=== PATIENT | female | born 1955 | race Caucasian/White ===

== ENCOUNTER 2016-12-07 13:37 | Emergency (ER) | payer BC, OTHER ==
[~2016-12-07] VITALS: Ht 165.1 cm; Wt 65.0 kg
[~2016-12-07 13:37] MED LIST: GUAI100S6 PO; ZITH250T PO
[2016-12-07 13:40] VITALS: BP 159/98; PULSE 104; RESP 16; TEMP 97.9; O2SAT 97
--- NOTE | 2016-12-07 15:05 | PD ---
HPI Chief Complaint: Skin Problem Time Seen by Provider: 14:58 Travel History International Travel<30 days: No Contact w/Intl Traveler<30days: No Traveled to known affect area: No History of Present Illness HPI Patient comes in for evaluation bleeding from her left leg. Patient states that she was trying to get her cat and its cage when it grabbed onto her leg and possibly bit her causing the bleeding. Patient is uncertain is uncertain if the cat bit her or just scratched her. Patient states she applied pressure prior to coming emergency department, but was concerned as the wound was Bleeding of Blood through Her Pants. Patient Denies Being on Any Blood Thinners or Having Any Pain with This. Patient Reports Her Tetanus Shot Is Up- To-Date. Patient reports her Vaccinations Vaccinations are up-to-date. [facility] Past Medical History Medical History: Denies Significant Hx Diminished Hearing: No Menopausal: Yes Past Surgical History Tonsillectomy: Yes Other Surgery: Yes (NOSE) Social History Alcohol Use: No Tobacco Use: No Substance Use: No Allergies-Medications (Allergen,Severity, Reaction): Coded Allergies: No Known Allergies (Verified , 12/07/16) Reported Meds & Prescriptions Reported Meds & Active Scripts Active Augmentin (Amoxicillin-Clavulanate) 875-125 mg Tab 875 Mg PO BID 10 Days not for use in CrCl <30 ml/min. Review of Systems Except as stated in HPI: all other systems reviewed are Neg Physical Exam Narrative GENERAL: Well-developed, well nourished, in no acute distress, and non-ill appearing. SKIN: Warm and dry. No active bleeding, laceration, or obvious puncture wound noted on left leg over were a bandage was placed. There is dried blood on the bandage noted. There are 3 superficial abrasions noted over a varicose vein that are more consistent with a claw than a tooth. It is afebrile, nontender and no foreign body noted. HEAD: Atraumatic. Normocephalic. EYES: Pupils equal and round. EOMI. No scleral icterus. No injection or drainage. ENT: No nasal bleeding or discharge. Mucous membranes pink and moist. NECK: Trachea midline. Supple. No nuclear rigidity. RESPIRATORY: No accessory muscle use. No respiratory distress. MUSCULOSKELETAL: No obvious deformities. No clubbing. No cyanosis. No edema. Full range of motion. NEUROLOGICAL: Awake and alert. No obvious cranial nerve deficits. Motor grossly within normal limits. Normal speech. PSYCHIATRIC: Appropriate mood and affect; insight and judgment normal. Data Data Last Documented VS Vital Signs Date Time Temp Pulse Resp B/P Pulse Ox O2 Delivery O2 Flow Rate FiO2 12/07/16 13:40 97.9 104 16 159/98 97 Room Air Orders Wound Care (12/07/16 14:58) MDM Medical Decision Making Medical Screen Exam Complete: Yes Emergency Medical Condition: Yes Differential Diagnosis Laceration, abrasion, bite, other Narrative Course The patient suffered animal bite wound versus a claw scratch. The animal is domesticated, vaccinations are reported to be UTD and the animal can be watched. There is no evidence of deep tissue involvement and/or local tendon involvement. There was no evidence to suggest foreign bodies. Visual and tactile exams were unremarkable. There was no evidence of neurovascular injury as well. The patients wounds were irrigated copiously, cleaned and dressed by nurse. Rabies prophylaxis was discussed with the patient and exposure appears low risk and not indicated. The patient was given signs and symptom warnings for infection, such as increasing pain, pain with movement of involved extremity ,redness, swelling, associated heat, pus or fever. The patient was given antibiotics to cover mouth corey and instructions for timely follow up for wound recheck. The patient agreed with plan of care. Animal control was contacted by per hospital protocol. Patient in no obvious distress upon re-evaluation. Patient was asked if they wanted to speak to my attending, which the patient did not wish to do at this time. Any questions/concerns in reference to patient diagnosis/condition discussed and clarified prior to patient's discharge. Reinforced sheer importance of close follow up with patient's primary physician or primary care clinic. Instructed patient to return to ED immediately, if symptoms return/ worsen. Pt showed understanding of above instructions. Further instructions and recommendations were detailed in discharge paperwork. Pt ambulated without difficulty out of ED at discharge. Diagnosis Primary Impression: Cat bite of left thigh Qualified Code: S71.152A - Cat bite of left thigh, initial encounter Patient Instructions: Animal Bite (ED), General Instructions Additional Instructions: Follow-up with your primary care physician in 2-3 days for reevaluation. Take all medication as prescribed. Return to the emergency department if symptoms get worse. Med/Other Pt SpecificInfo: Prescription(s) given Scripts Amoxicillin-Clavulanate (Augmentin)875-125 mg [id number] Mg PO BID 10 Days Ref 0 not for use in CrCl <30 ml/min. Prov:Jeni Guerrero MD 12/07/16 Disposition: 01 DISCHARGE HOME Condition: Stable Aditya Jiménez Dec 07, 2016 15:05
[2016-12-07] MEDS ORDERED: AUGM875T PO (15:06)
== END 2016-12-07 15:26 | disposition home or self-care (01) ==
LOC: NEPB 13:37
DX: S71.152A Open bite, left thigh, initial encounter (principal); W55.01XA Bitten by cat, initial encounter
CPT/HCPCS: 99283